=== PATIENT | male | born 1960 | race Caucasian/White ===

== ENCOUNTER 2024-05-27 05:55 | Day surgery (SDC) | payer MEDICARE, OTHER ==
[~2024-05-27] VITALS: Ht 180.3 cm; Wt 94.3 kg
[2024-05-27] VITALS (10 sets, daily range): BP systolic 128–154; BP diastolic 79–92; PULSE 46–66; RESP 9–16; TEMP 96.8; O2SAT 97–99
[2024-05-27] MEDS: DOCUMENT DATE & TIME OF BETA-BLOCKER PO ONE (05:30)
[~2024-05-27 05:55] MED LIST: FLO0.4C PO; LOSA100T58 PO; METO-395 PO; TEMA30CA PO
[2024-05-27] MEDS: famotidine 20mg tablet PO ONE (07:17)
[2024-05-27] MEDS: ringers solution, lacted 1,000 ML IV SCH (07:17)
[2024-05-27] MEDS: CLINDAMYCIN 600mg IN NS 50ML 50 ML IV ONE (07:18)
[2024-05-27 07:24] LABS: BASOPHILS % (AUTO) 0.6 % (0-1); EOSINOPHILS # (AUTO) 0.2 X10'3 (0-0.9); EOSINOPHILS % (AUTO) 3.3 % (0-6); LYMPHOCYTES # (AUTO) 1.1 X10'3 (1.1-4.8); LYMPHOCYTES % (AUTO) 15.9 % (21-51); MEAN CORPUSCULAR HEMOGLOBIN 32.5 PG (27.0-31.0); MEAN CORPUSCULAR VOLUME 92.9 FL (78-98); MEAN PLATELET VOLUME 7.6 FL (7.4-10.4); MONOCYTES # (AUTO) 0.6 X10'3 (0-0.9); MONOCYTES % (AUTO) 8.1 % (2-12); NEUTROPHILS # (AUTO) 4.9 X10'3 (1.8-7.7); NEUTROPHILS % (AUTO) 72.1 % (42-75); PRE OP HEMATOCRIT 49.1 % (42.0-52.0); PRE OP HEMOGLOBIN 17.2 g/dL (14.0-17.9); PRE OP PLATELET COUNT 166 X10'3 (140-440); PRE OP WHITE BLOOD COUNT 6.8 10'3 (4.8-10.8); RED BLOOD COUNT 5.29 X10'6 (4.70-6.10); RED CELL DISTRIBUTION WIDTH 14.5 % (11.5-14.5)
[2024-05-27 07:38] LABS: ALBUMIN 3.7 G/DL (3.4-5.0); ALBUMIN/GLOBULIN RATIO 1.1 (1.1-1.5); ALKALINE PHOSPHATASE 58 IU/L (46-116); BLOOD UREA NITROGEN 19 MG/DL (7-18); BUN/CREATININE RATIO 16.8 (10.0-20.0); CHLORIDE 105 MMOL/L (99-107); CREATININE 1.13 MG/DL (0.60-1.10); PRE OP ALT 69 U/L (30-65); PRE OP ANION GAP 12 (8-16); PRE OP AST 36 U/L (10-37); PRE OP BILIRUB, TOTAL 0.6 MG/DL (0.0-1.0); PRE OP GLUCOSE 124 MG/DL (70-104); PRE OP POTASSIUM 4.2 MMOL/L (3.4-5.1); PRE OP SODIUM 139 MMOL/L (135-145); TOTAL CARBON DIOXIDE 22.5 MMOL/L (24-32); TOTAL PROTEIN 7.2 G/DL (6.4-8.2); eCRCL 69 ML/MIN; eGFR 65 ML/MIN
[2024-05-27] MEDS ORDERED: morphine 4 MG/ML inj SYRINge IV PRN (08:00)
[2024-05-27] MEDS ORDERED: ringers solution, lacted 1,000 ML IV SCH (08:00)
[2024-05-27] MEDS ORDERED: proCHLORperazine 10 MG/2 ml inj IV PRN (08:00)
[2024-05-27] MEDS ORDERED: meperidine/PF 25mg/ml syringe IV PRN ×2 (08:00)
[2024-05-27] MEDS ORDERED: ondansetron/PF 4mg/2ml inj IV PRN (08:00)
[2024-05-27] MEDS ORDERED: labetalol 20mg/4ml (5mg/ml) syringe IV PRN (08:00)
[2024-05-27] MEDS ORDERED: hydrALAZINE 20mg/ml inj. IV PRN (08:00)
[2024-05-27] MEDS ORDERED: BUPIVAcaine/PF 5 mg/ml 10ml ONE (09:11)
[2024-05-27] MEDS ORDERED: LIDOcaine 0.5% (5mg/ml) 50ml vial ONE (09:15)
[2024-05-27] MEDS ORDERED: fentaNYL/PF 50MCG/1 ML 2ML syringe ONE (09:20)
[2024-05-27] MEDS ORDERED: midazolam 1 mg/ML 2ml injection ONE (09:20)
[2024-05-27] MEDS ORDERED: triamcinolone acetonide 40mg/ml inj ONE (09:28)
[2024-05-27] MEDS: triamcinolone acetonide 40mg/ml inj IM ONE (09:35)
[2024-05-27] MEDS ORDERED: propofol inj 20 ML IV ONE ×2 (09:48)
[2024-05-27] MEDS: meperidine/PF 25mg/ml syringe IV PRN (10:38)
[2024-05-27] MEDS: morphine 2 MG/ML inj. syringe IV PRN (10:56)
== END 2024-05-27 11:18 | disposition home or self-care (01) ==
LOC: PAS 05:55
PROVIDERS: ATTEND Orthopaedic Surgery Hand Surgery
DX: M18.11 Unilateral primary osteoarthritis of first carpometacarpal joint, right hand (principal); M18.12 Unilateral primary osteoarthritis of first carpometacarpal joint, left hand; M77.8 Other enthesopathies, not elsewhere classified; I10 Essential (primary) hypertension; E78.5 Hyperlipidemia, unspecified; M19.90 Unspecified osteoarthritis, unspecified site; Z87.891 Personal history of nicotine dependence; Z86.73 Personal history of transient ischemic attack (TIA), and cerebral infarction without residual deficits; Z79.1 Long term (current) use of non-steroidal anti-inflammatories (NSAID); Z79.899 Other long term (current) drug therapy; Z90.89 Acquired absence of other organs; Z98.890 Other specified postprocedural states; Z88.0 Allergy status to penicillin; Z88.5 Allergy status to narcotic agent; Z88.8 Allergy status to other drugs, medicaments and biological substances
CPT/HCPCS: 20600; 25116; 25310; 25447; 36415; 80053; 82948; 85025; A4215; A4618; A6449; A7000; J0665; J2001; J2175; J2250; J2270; J2704; J3010; J3301; J3490; J7030; J7120; Z7506; Z7508; Z7512; Z7610